=== PATIENT | male | born 1955 | race Caucasian/White ===

== ENCOUNTER 2020-09-04 10:35 | Emergency (ER) | payer OTHER ==
[~2020-09-04] VITALS: Ht 180.3 cm; Wt 80.3 kg
[~2020-09-04 10:35] MED LIST: FAMOTIDINE. 20 MG/2 ML VIAL IV ONE; LIDOCAINE VISCUS 2% 15 ML UDC ONE; MAG HYDROX/AL HYDROX/SIMETH 30 ML LIQUID UDC ONE
[2020-09-04] MEDS ORDERED: ATOR20TA PO (10:46)
[2020-09-04] MEDS ORDERED: IRBE150T28 PO (10:46)
[2020-09-04] MEDS: LIDOCAINE VISCUS 2% 15 ML UDC MM ONE (11:02)
[2020-09-04] MEDS: MAG HYDROX/AL HYDROX/SIMETH 30 ML LIQUID UDC PO ONE (11:02)
[2020-09-04] MEDS: FAMOTIDINE. 20 MG/2 ML VIAL IV ONE (11:03)
[2020-09-04 11:04] LABS: BASOPHILS % (AUTO) 0.6 % (0.0-2.0); EOSINOPHILS # (AUTO) 0.2 K/uL (0.0-0.7); EOSINOPHILS % (AUTO) 2.9 % (0.0-7.0); HEMATOCRIT 46.7 % (36.7-47.1); HEMOGLOBIN 16.1 g/dL (12.5-16.3); LYMPHOCYTES # (AUTO) 1.4 K/uL (20.0-40.0); LYMPHOCYTES % (AUTO) 18.8 % (20.5-51.5); MEAN CORPUSCULAR HEMOGLOBIN 31.5 uug (23.8-33.4); MEAN CORPUSCULAR HGB CONC 35 g/dL (32.5-36.3); MEAN CORPUSCULAR VOLUME 91.3 fL (73.0-96.2); MONOCYTES # (AUTO) 0.6 K/uL (2.0-10.0); MONOCYTES % (AUTO) 8.2 % (0.0-11.0); NEUTROPHILS # (AUTO) 5.1 K/uL (1.8-8.9); NEUTROPHILS % (AUTO) 69.5 % (38.5-71.5); PLATELET COUNT (AUTO) 248 K/uL (152-348); RED BLOOD CELL COUNT(AUTO) 5.11 MIL/uL (4.06-5.63); WHITE BLOOD COUNT (AUTO) 7.4 K/uL (3.6-10.2)
[2020-09-04 11:15] LABS: CREATININE 1.4 mg/dL (0.6-1.3); POTASSIUM 3.7 mmol/L (3.5-5.1)
[2020-09-04 11:21] LABS: BILIRUBIN,DIRECT 0.2 mg/dL (0.0-0.2); BILIRUBIN,TOTAL 0.8 mg/dL (0.2-1.0); TOTAL PROTEIN, SERUM 7.9 g/dL (6.4-8.2)
[2020-09-04 14:48] VITALS: BP 138/81
== END 2020-09-04 14:46 | disposition home or self-care (01) ==
LOC: ER 10:35
DX: R10.13 Epigastric pain (principal); R07.89 Other chest pain; N28.9 Disorder of kidney and ureter, unspecified; I10 Essential (primary) hypertension; R00.1 Bradycardia, unspecified
CPT/HCPCS: 36415; 70030-TC; 71045; 83690; 85025; 93005; A4663; J3490